=== PATIENT | female | born 2000 | race Caucasian/White ===

== ENCOUNTER 2020-06-21 16:44 | Emergency (ER) | payer OTHER, SELFPAY ==
--- NOTE | ~2020-06-21 | CT_ITS ---
CT lumbar spine wo con DATE: 06/21/2020 19:16 INDICATION: Fall yesterday. Lower back pain radiating to right leg Lumbar spine radiographs with question of possible L1 fracture TECHNIQUE: Exam dose: 1176.21 mGy-cm total exam DLP. COMPARISON: 06/21/2020 lumbar spine FINDINGS: There is mild anterior wedge compression fracture deformity of T12 of uncertain age. No fracture of the lumbar spine including L1. No spondylolysis or spondylolisthesis. Lumbar and lumbosacral interspaces are well preserved. Incidental finding of approximately 7.5 mm right renal calculus and at least 2 additional small right and one small left nonobstructing renal calculi. IMPRESSION: Mild anterior wedge compression fracture deformity of T12 uncertain Bilateral nephrolithiasis Reviewed, dictated and finalized at [facility]. Reviewed, dictated and finalized at location A. IRONER
--- NOTE | ~2020-06-21 | XR_ITS ---
XR lumbar spine 2-3V DATE: 06/21/2020 18:12 INDICATION: Fall yesterday. Lower back pain radiating to right leg TECHNIQUE: AP, lateral, coned lateral lumbosacral views COMPARISON: None FINDINGS: Normal alignment of the lumbar spine. A subtle step-off of the lower anterior cortex of the first lumbar vertebral body suggesting possible subtle fracture. Consider CT evaluation to confirm or exclude L1 vertebral body fracture. No other fracture or bone destruction is evident. The included lower thoracic and lumbar pedicles are intact. The lumbar and lumbosacral interspaces are well preserved. The sacroiliac joints are intact. IMPRESSION: Possible L1 vertebral body fracture; consider CT lumbar spine for further evaluation Reviewed, dictated and finalized at location A. ED PERSON IMPRESSION: Possible L1 vertebral body fracture; consider CT lumbar spine for f urther evaluation
[2020-06-21 17:15] VITALS: BP 145/95; PULSE 110; RESP 16; TEMP 36.6; O2SAT 98
--- NOTE | 2020-06-21 18:45 | PC.NURSE ---
CT of lumbar spine ordered. provider in room now.
--- NOTE | 2020-06-21 19:29 | PC.NURSE ---
patient back from CT. resting on stretcher. SO in room. patient wants pain meds. will discuss with provider.
--- NOTE | 2020-06-21 19:38 | ED.GENADULT ---
HPI - General Adult General Chief complaint: Back Pain/Injury Stated complaint: fall 2 days ago, back pain Time Seen by Provider: 06/21/20 17:22 Source: patient Mode of arrival: ambulatory Limitations: no limitations History of Present Illness HPI narrative: Patient presents with chief complaint of pain to her low back that presented 2 days ago after slipping on the stairs and landing directly on her buttocks. Patient states she fell like this shifted some pressure upward and now she has pain that sometimes radiates down her right leg with weightbearing or range of motion. She denies any saddle paresthesia, loss of bowel or bladder function or difficulty urinating or passing stool. Patient states she has been taking Tylenol and ibuprofen at home which does help slightly with her discomfort. 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 Patient denies any prior injuries to her back. Related Data Home Medications Medication Instructions Recorded Confirmed trazodone 06/21/20 venlafaxine mg PO 06/21/20 Allergies Allergy/AdvReac Type Severity Reaction Status Date / Time No Known Allergies Allergy Verified 06/21/20 19:40 Review of Systems Review of Systems: Narrative: CONSTITUTIONAL: Denies fever, chills, or sweats. EYES: Denies visual changes, redness, or discharge. ENT: Denies rhinorrhea, congestion, sore throat, or otalgia. CARDIOVASCULAR: Denies chest pain, palpitations, or edema. RESPIRATORY: Denies cough or dyspnea. GASTROINTESTINAL: Denies abdominal pain, nausea, vomiting, or diarrhea. GENITOURINARY: Denies dysuria or hematuria. SKIN: Denies rash or itching. MUSCULOSKELETAL: Reports back pain denies joint pain, or myalgia. NEUROLOGIC: Denies headache, numbness, dizziness, or weakness. PSYCHIATRIC: Denies anxiety or depression. Exam Narrative: Exam Narrative: GENERAL: Well-appearing, well-nourished, and in no acute distress. HEAD: Normocephalic, atraumatic. EYES: PERRLA and EOMI. NECK: Supple. No adenopathy or masses. Ligaments intact CHEST: Clear to auscultation. No respiratory distress. No wheezes rales or rhonchi HEART: Regular rate and rhythm. No murmur heard. Normal peripheral pulses. BACK: Pain to the lumbar area with palpation around L1-L4 area. Patient has full range of motion to her lower extremities. Patient's plantar and dorsiflexion strength intact. Patient reports full sensation to lower extremities. ABDOMEN: Soft, nontender, nondistended, normal active bowel sounds. EXTREMITIES: Normal range of motion. No edema. SKIN: Warm, dry, no rash. NEURO: No focal deficits. Alert and oriented x3. PSYCH: Normal mood and affect. Course Vital Signs Vital signs: Vital Signs Temperature 97.8 F 06/21/20 17:15 Pulse Rate 110 H 06/21/20 17:15 Respiratory Rate 16 06/21/20 17:15 Blood Pressure 145/95 H 06/21/20 17:15 Pulse Oximetry 98 06/21/20 17:15 Temperature 97.8 F 06/21/20 17:15 Pulse Rate 90 06/21/20 20:08 Respiratory Rate 16 06/21/20 20:08 Blood Pressure 132/80 06/21/20 20:08 Pulse Oximetry 100 06/21/20 20:08 Medical Decision Making MDM Narrative Medical decision making narrative: X-ray shows possible compression fracture to L1, CT is ordered for clarification. CT shows T12 anterior wedge fracture, mild. Calling Dr De Souza to see if he will manage patient due to her stable nature. Vital Signs Vital Signs: Vital Signs Temperature 97.8 F 06/21/20 17:15 Pulse Rate 110 H 06/21/20 17:15 Respiratory Rate 16 06/21/20 17:15 Blood Pressure 145/95 H 06/21/20 17:15 Pulse Oximetry 98 06/21/20 17:15 Temperature 97.8 F 06/21/20 17:15 Pulse Rate 90 06/21/20 20:08 Respiratory Rate 16 06/21/20 20:08 Blood Pressure 132/80 06/21/20 20:08 Pulse Oximetry 100 06/21/20 20:08 Lab Data Labs: UCG Bedside Result Negative
[2020-06-21] MEDS: HYDROcodone/acetaminophen (*CRX) 5-325 MG TABLET 1 TAB PO (19:41)
[2020-06-21 20:08] VITALS: BP 132/80; PULSE 90; RESP 16; O2SAT 100
== END 2020-06-21 20:09 | disposition home or self-care (01) ==
PROVIDERS: Emergency Provider Emergency Medicine; PCP Family Medicine
DX: S22.080A Wedge compression fracture of T11-T12 vertebra, initial encounter for closed fracture (principal); N20.0 Calculus of kidney; W10.9XXA Fall (on) (from) unspecified stairs and steps, initial encounter
CPT/HCPCS: 72100; 72131; 81025; 99284; A9270

== ENCOUNTER 2020-09-02 08:45 | Outpatient (RCR) | payer OTHER, BC, SELFPAY ==
--- NOTE | 2020-08-05 08:34 | PTOPEVAL ---
Thank you for referring Chrissie Rodríguez to [facility].? The patient is scheduled to be seen for therapy? 1-2 x/week for 5 weeks. Please review, sign, date and return this plan of care SUJIT. I agree with and certify that the following plan of care is medically necessary. Referring Physician Date Attending Provider: Boris De Souza MD Evaluation Information Problem Diagnosis T12 compression fracture Onset 06/21/20 Cause fall Subjective Information She feel down some steps when Query Text:As Reported By Patient/ she slipped landing on her Family tailbone. She is was on precautions of no bending, lifting. She has not been progressed to lift 10# and avoid excessive bending. 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 She c/o ache pain in her back region. C/o tightness of her back region with difficutly trying to stretch. She has increased pain with prolonged standing and sitting. She has increased pain after working her shift. She does not perform a regular exercise program. Diagnostic Tests X-Rays For This Problem Yes MRI For This Problem Yes Pain Assessment Self Report Pain Assessment Right Lower Back Reported Pain Level 2 Pain Description Aching Pain Frequency Acute,Intermittent Lowest Pain Intensity 0 Greatest Pain Intensity 5 Pain Aggravating Factors Lifting,Prolonged Position, Sitting,Walking,Weight Bearing /Standing Cervical and Lumbar ROM Lumbar ROM 25% of Normal Lumbar Comments painful with all trunk motions Lower Extremity Range of Motion General Lower Extremity Range of Motion Reason Not Measured WNL/Left,WNL/Right Lower Extremity Muscle Strength Testing Hip Strength Bilateral Hip Flexion Strength 5 Normal Hip Extension Strength 3+ Fair + Hip Abduction Strength 3 Fair Knee Strength Bilateral Knee Flexion Strength 5 Normal Knee Extension Strength 5 Normal Muscle Length Testing Muscle Length Testi
--- NOTE | 2020-09-02 09:23 | PTOPEVAL ---
Thank you for referring Chrissie Rodríguez to [facility] [place].? Chrissie has received 9 therapy visits from 08/05/20 to 09/02/20 to address limitations regarding her back fracture. She has improved with her pain, mobility, strength and ability to perform daily activities. She has achieved her therapy goals. Will D/C skilled therapy service at this time. Please review, sign, date and return this discharge summary SUJIT. I agree with and certify that the following plan of care is medically necessary. Referring Physician Date Attending Provider: Boris De Souza MD Physical therapy discharge note Diagnosis T12 compression fracture Onset 06/21/20 Cause fall Additional Evaluation Detail She feel down some steps when she slipped landing on her tailbone. 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 Denies any problems with work activities, daily activities or home program. She c/o increased tightness if she works 2 days in a row. Improved tightness with stretching. Pain Assessment Right Lower Back Reported Pain Level 1 Pain Description Tightness Pain Frequency Intermittent Lowest Pain Intensity 0 Greatest Pain Intensity 1 Pain Aggravating Factors Exercise/Activity Cervical and Lumbar ROM Lumbar Flexion Active Ankle Query Text:Hands to: Lumbar ROM WNL Lumbar Comments no pain with any trunk motions Lower Extremity Range of Motion General Lower Extremity Range of Motion Reason Not Measured WNL/Left,WNL/Right Lower Extremity Muscle Strength Testing Hip Strength Bilateral Hip Flexion Strength 5 Normal Hip Extension Strength 5 Normal Hip Abduction Strength 4- Good - Knee Strength Bilateral Knee Flexion Strength 5 Normal Knee Extension Strength 5 Normal Muscle Length Testing Two-Joint Hip Flexor Shortened Muscles Short (R) Iliopsoas,Short (L) Iliopsoas,Short (R) Rectus Femoris,Short (L) Rectus Femoris Piriformis w/Hip Neutral (R) Moderate Tightness,(L) Moderate Tightness Right Straight Leg Raise Muscle Length ( 88 degrees) Left Straight Leg Raise Muscle Length ( 78 degrees) Left Hamstring Length -40 Query Text:(90 - 90 Position) Right Hamstring Length -40 Query Text:(90 - 90 Position) Palpation Assessment Palpation
== END 2020-09-05 07:52 | disposition home or self-care (01) ==
LOC: ANHPT 08:45
PROVIDERS: PCP Family Medicine; Visit Provider Orthopaedic Surgery
DX: S22.080D Wedge compression fracture of T11-T12 vertebra, subsequent encounter for fracture with routine healing (principal)
CPT/HCPCS: 97110; 97140; 97161

== ENCOUNTER 2022-09-11 14:14 | Outpatient (CLI) | payer OTHER, SELFPAY ==
--- NOTE | ~2022-09-11 | XR_ITS ---
XR lumbar spine 2-3V DATE: 09/11/2022 14:58 INDICATION: Right hip pain for 3 years, worsening TECHNIQUE: AP, lateral, coned lateral lumbosacral views COMPARISON: 06/21/2020 CT lumbar spine FINDINGS: Chronic minimal anterior wedging of T12, stable since 06/21/2020. No fracture or bone destruction of the lumbar spine. The lumbar pedicles are intact. Lumbar and lumbo sacral interspaces are well preserved. The sacroiliac joints are normal. IUD overlies the lower mid pelvis. IMPRESSION: Chronic mild anterior wedging of T12, stable since 06/21/2020 No significant abnormality of the lumbar spine IUD Reviewed, dictated and finalized at location L.
--- NOTE | ~2022-09-11 | XR_ITS ---
XR hip LT 2V w AP pelvis DATE: 09/11/2022 14:59 INDICATION: Hip pain for 3 years, worsening TECHNIQUE: AP pelvis. AP and lateral views of left hip. COMPARISON: None FINDINGS: Normal alignment at the pubic symphysis and sacroiliac joints. No pelvic fracture or bone d estruction. Hip joint spaces appear symmetric and relatively preserved. No fracture, dislocation, avascular necro sis or bone destruction of the left hip. IUD overlies the mid pelvis. IMPRESSION: No pelvic or left hip fracture or dislocation Reviewed, dictated and finalized at location L.
== END 2022-09-11 14:15 | disposition home or self-care (01) ==
PROVIDERS: PCP Family Medicine; Visit Provider Family Medicine
DX: M25.551 Pain in right hip (principal); M48.54XA Collapsed vertebra, not elsewhere classified, thoracic region, initial encounter for fracture; Z97.5 Presence of (intrauterine) contraceptive device
CPT/HCPCS: 72100; 73502

== ENCOUNTER 2022-11-14 15:01 | Outpatient (RCR) | payer OTHER, SELFPAY ==
--- NOTE | 2022-09-24 11:55 | PTOPEVAL1 ---
Assessment and note entered by Leena Herrera DPT Evaluation Information Diagnosis L hip pain Subjective Information Patient reports 3 years ago when she was hip pain started with her daughter being positioned on the L side. She had another child a year ago which also progressed pain. She reports over the last 3 years pain has progressed. Patient has difficulty with laying on her L side, rolling in bed, navigating stairs and squatting. She reports that laying on the L side relieves pain. She reports she got a cortisone injection of and since then she has had an increase in back pain. She reports pain now is across the low back and into the L glute. 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 Reported Pain Level Pain Score 0,2: Self Report Assessment PT Clinical Summary Patient is a 21 year old female who presents to PT with low back and L hip pain. Patient demonstrates tightness of L piriformis, decreased L LE weakness, decreased L hip ROM and positive SLR test indicating possible lumbar radiculopathy. She is limited in ability to stand, squat and ambulate. She would benefit from skilled PT to address impairments and return to OF. Plan of Care Interventions Electrical Stimulation,Gait Training,Hot Pack/Cold Pack,Manual Therapy,Mechanical Traction,Neuro Re- education,Patient/Caregiver Educati,Therapeutic Activities,Therapeutic Exercise PT Services Indicated Yes Treatment Frequency and 2x weekly for 10 visits Duration These treatments will address the objective and functional deficits as defined above. The patient will be advanced safely and appropriately in order for the patient to progress towards his/her prior level of function. Additional exercises will be introduced and as well as a comprehensive home exercise program upon discharge, if needed, ?to ensure carryover of functional gains achieved in the clinic. This treatment plan has been reviewed and agreement upon by the patient.
--- NOTE | 2022-10-25 15:21 | PTOPREEVAL ---
Assessment and note entered by JT File, PT Evaluation Information Assessment Status Re-evaluation Diagnosis L hip pain Subjective Information patient reports she feels only a little bit of improvement, but no significant improvements. she reports the post hip pain is gone thanks to injection, but her back pain is still present. she reports she was home with 2 sick kids yesterday which could have flared up her back pain /soreness. she reports she has increased pain still in the lower back with lifting and carrying her kids, and occassionally from sleeping on it at night. Reported Pain Level Pain Score 5,0: Self Report Assessment PT Clinical Summary mrs. crawley presents to skilled PT for her 12th skilled PT visit. today, she is more sore from carrying and lifting 2 sick kids yesterday. she has met goals for hep performance and L hip rom as of today, but continues to present with mm tightness, L hip weakness, and decreased functional activity performance and quality of life. although she has not achieved intermediate project manager goals for these deficits she is making progress towards their achievement with skilled PT. she would benefit from continued skilled PT with transition into core stability and functional lifting program. Plan of Care Interventions Electrical Stimulation,Gait Training,Hot Pack/Cold Pack,Manual Therapy,Mechanical Traction,Neuro Re- education,Patient/Caregiver Educati,Therapeutic Activities,Therapeutic Exercise PT Services Indicated Yes Treatment Frequency and continue skilled PT 1x weekly for 3 more visits Duration These treatments will address the objective and functional deficits as defined above. The patient will be advanced safely and appropriately in order for the patient to progress towards his/her prior level of function. Additional exercises will be introduced and as well as a comprehensive home exercise program upon discharge, if needed, ?to ensure carryover of functional gains achieved in the clinic. This treatment plan has been reviewed and agreement upon by the patient.
[2022-11-14 15:05] LABS: Urine Cotinine POSITIVE (Negative)
--- NOTE | 2022-11-21 14:46 | PTOPDC ---
Assessment and note entered by Leena Herrera DPT Evaluation Information Assessment Status Re-evaluation Diagnosis L hip pain Subjective Information Patient reports she continues to have pain with activity but reports she can do more before needing to rest. She reports she has a pending appt to get into a spine pain managment specialist . She reports compliance with HEP Reported Pain Level Pain Score 4,0: Self Report Assessment PT Clinical Summary Patient been seen for a total of 13 visits of skilled PT. She demonstrates improved LE strength and flexibility as well as reports and increase in activity tolerance. She reports she is able to do more activity prior to onset of pain. She reports independence with HEP and is appropriate for DC at this time. Plan of Care PT Services Indicated No
== END 2022-11-21 15:26 | disposition home or self-care (01) ==
LOC: CHSPT 15:01
PROVIDERS: PCP Family Medicine; Visit Provider Family Medicine
DX: M25.551 Pain in right hip (principal)
CPT/HCPCS: 80307; 97014; 97110; 97140; 97150; 97161; G0283

== ENCOUNTER 2023-02-20 09:02 | Outpatient (CLI) | payer OTHER, SELFPAY ==
[2023-02-20 09:34] LABS: SARS-CoV-2 Ag Negative (Negative)
== END 2023-02-20 09:03 | disposition home or self-care (01) ==
PROVIDERS: PCP Family Medicine; Visit Provider Registered Nurse
DX: R51.9 Headache, unspecified (principal); Z20.822 Contact with and (suspected) exposure to COVID-19
CPT/HCPCS: 87426; C9803

== ENCOUNTER 2023-06-04 16:42 | Outpatient (CLI) | payer OTHER, SELFPAY ==
[2023-06-04 16:54] LABS: Basophils Absolute Auto 0.03 K/mm3 (0.00-0.10); Basophils Percent Auto 0.5 % (0.0-1.0); Eosinophils Absolute Auto 0.15 K/mm3 (0.02-0.50); Eosinophils Percent Auto 2.3 % (1.0-6.0); Hematocrit 38.5 % (35.0-49.0); Hemoglobin 12.5 g/dL (12.0-15.0); Immature Granulocyte Absolute 0.02 K/mm3 (0.00-0.00); Immature Granulocyte Percent A 0.3 % (0.0-0.0); Lymphocytes Absolute Auto 1.89 K/mm3 (1.10-4.50); Lymphocytes Percent Auto 28.6 % (18.0-42.0); Mean Corpuscular HGB Conc 32.5 g/dL (32.0-36.0); Mean Corpuscular Hemoglobin 26.3 pg (27.0-31.0); Mean Corpuscular Volume 81.1 fL (78.0-102.0); Mean Platelet Volume 10.7 fl (9.2-11.8); Monocytes Percent Auto 9.1 % (2.0-11.0); Neutrophils Absolute Auto 3.9 K/mm3 (1.7-7.2); Neutrophils Percent Auto 59.2 % (50.0-70.0); Platelet Count Result 321 K/mm3 (150-420); Red Blood Count 4.75 M/mm3 (4.20-5.40); Red Cell Distribution Width 14.5 % (11.6-14.4); White Blood Count 6.6 K/mm3 (4.8-10.8)
[2023-06-04 17:42] LABS: Alanine Aminotransferase 25 U/L (14-59); Albumin Level 3.7 g/dL (3.4-5.0); Alkaline Phosphatase 90 U/L (46-116); Anion Gap 12 mmol/L (8-16); Aspartate Amino Transferase 16 U/L (15-37); Bilirubin,Total 0.2 mg/dL (0.00-1.00); Blood Urea Nitrogen 10 mg/dL (7-18); Carbon Dioxide 24 mmol/L (21-32); Chloride 99 mmol/L (98-108); Estimated Glomerular Filt Rate > 60; Folic Acid 15.7 ng/mL (8.6->20); Glucose 101 mg/dL (70-99); Iron 34 ug/dL (50-170); Osmolality Calculated 279 mOsm/kg (285-295); Percent Iron Saturation 8 % (12-57); Potassium 4.2 mmol/L (3.5-5.1); Sodium 135 mmol/L (136-145); Thyroid Stimulating Hormone 2.18 uIU/mL (0.36-3.74); Total Protein 7.3 g/dL (6.4-8.2); Vitamin B12 624 pg/mL (193-986)
[2023-06-09 14:05] LABS: Vitamin D 25 Hydroxy 12 ng/mL (30-100)
== END 2023-06-04 16:43 | disposition home or self-care (01) ==
PROVIDERS: PCP Family Medicine; Visit Provider Family Medicine
DX: R53.83 Other fatigue (principal); F32.A Depression, unspecified
CPT/HCPCS: 36415; 80053; 82306; 82607; 82746; 83540; 83550; 84443; 85025

== ENCOUNTER 2023-09-10 14:32 | Outpatient (CLI) | payer OTHER, MEDICAID, SELFPAY ==
[2023-09-10 14:55] LABS: Basophils Absolute Auto 0.02 K/mm3 (0.00-0.10); Basophils Percent Auto 0.2 % (0.0-1.0); Hematocrit 39.8 % (35.0-49.0); Hemoglobin 12.8 g/dL (12.0-15.0); Immature Granulocyte Absolute 0.04 K/mm3 (0.00-0.00); Immature Granulocyte Percent A 0.4 % (0.0-0.0); Lymphocytes Percent Auto 21.1 % (18.0-42.0); Mean Corpuscular HGB Conc 32.2 g/dL (32-36); Mean Corpuscular Hemoglobin 27.2 pg (27.0-31.0); Mean Corpuscular Volume 84.5 fL (78.0-102.0); Mean Platelet Volume 9.6 fl (9.2-11.8); Neutrophils Absolute Auto 6.81 K/mm3 (1.70-7.20); Neutrophils Percent Auto 68.3 % (50.0-70.0); Platelet Count Result 364 K/mm3 (150-420); Red Blood Count 4.71 M/mm3 (4.20-5.40); Red Cell Distribution Width 13.7 % (11.6-14.4)
[2023-09-10 15:19] LABS: Iron 37 ug/dL (50-170); Percent Iron Saturation 10 % (12-57)
[2023-09-11 22:04] LABS: Vitamin D 25 Hydroxy 38 ng/mL (30-100)
== END 2023-09-10 14:33 | disposition home or self-care (01) ==
LOC: CHSLAB 14:36
PROVIDERS: PCP Family Medicine; Visit Provider Family Medicine
DX: Z01.818 Encounter for other preprocedural examination (principal); E55.9 Vitamin D deficiency, unspecified
CPT/HCPCS: 36415; 82306; 83540; 83550; 85025

== ENCOUNTER 2023-12-03 09:57 | Outpatient (RCR) | payer OTHER, MEDICAID, SELFPAY ==
--- NOTE | 2023-12-03 16:10 | OPREHPOC ---
Outpatient Therapy Plan of Care This is a Multidisciplinary Plan of Care that may contain components documented by all disciplines (PT, OT, and ST.) PT Problem 1 PT Problem #1 Knowledge Deficit PT Goal 1 Goal 1.independent and compliant with HEP PT Problem 2 PT Problem #2 Pain PT Goal 1 Goal 1. decrease pain at worst to 2/10 or less Target Visit 12 PT Problem 3 PT Problem #3 Impaired Range of Motion PT Goal 1 Goal 1. improve L ankle active DF to 15 degrees or better 2. improve L ankle active PF to 40 degrees or better 3. improve L ankle active EV to 5 degrees or better 4. improve L ankle active IV to 25 degrees or better Target Visit 12 PT Problem 4 PT Problem #4 Impaired Strength PT Goal 1 Goal 1. improve L ankle strength to 5/5 overall 2. improve L to curl strength to 5/5 Target Visit 12 PT Problem 5 PT Problem #5 Impaired Functional Mobil PT Goal 1 Goal 1. LEFS to display 30% or less functional deficits 2. patient to wean out of boot completely 3. patient to ambulate on level surfaces with normal gait mechanics 4. patient to ambulate up steps with reciprocal mechanics and down steps with marked time or better pattern. Target Visit 12
--- NOTE | 2023-12-03 16:10 | PTOPEVAL1 ---
Assessment and note entered by JT File, PT Evaluation Information Assessment Status Evaluation Diagnosis pain in L foot Other ICD-10 Condition Codes ( M79.672 - pain in left foot PT) Onset 08/29/23 Subjective Information patient reports on 08/29/23, she was on her way to work. she reports she stopped for gas and tripped on the gas line. she reports she broke both bones in her ankle, and 2 bones in her foot. she had external fixators placed on 09/03/23, and on 09/17 she had a lisfranc repair, and internal fixation of the ankle. she reports she has been in a boot since surgery. she reports she began putting weight on the L ankle last week. she reports she started with 2 crutches, but now is down to 1 crutch. she reports she has difficulty with walking. she reports it is a struggle to remember how to walk sometimes. she reports she does not have a ton of pain. 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 Reported Pain Level Pain Score 3: Self Report Assessment PT Clinical Summary mrs. crawley is a 22 yo woman who presents to skilled PT services for rehab following fracture and surgical stabilization of the R ankle/foot. she had a pilon fracture and lis franc fracture repared/stabilized. she now presents with deficits in full weight bearing on the L, decreased L ankle rom, and L ankle/foot weakness. continued skilled PT is indicated to improve her objective/ functional deficits to return to prior level functional activity performance/quality of life. Plan of Care Interventions Gait Training,Hot Pack/Cold Pack,Manual Therapy, Neuro Re-education,Patient/Caregiver Educati, Therapeutic Activities,Therapeutic Exercise PT Services Indicated Yes Treatment Frequency and 2x weekly for 12 visits Duration These treatments will address the objective and functional deficits as defined above. The patient will be advanced safely and appropriately in order for the patient to progress towards his/her prior level of function. Additional exercises will be introduced and as well as a comprehensive home exercise program upon discharge, if needed, ?to ensure carryover of functional gains achieved in the clinic. This treatment plan has been reviewed and agreement upon by the patient.
--- NOTE | 2023-12-24 10:47 | PCPTNOTE ---
I reviewed the License Pending Therapist's documentation and agree with the findings.
--- NOTE | 2023-12-27 17:37 | PCPTNOTE ---
On 12/27/23, the license pending GARBAGE PICK UP WORKER, [Michelle Del Toro], provided care and completed [facility] documentation on this patient. I have reviewed the license pending GARBAGE PICK UP WORKER's documentation and agree with the findings.
--- NOTE | 2024-01-06 09:32 | PCPTNOTE ---
Patient called & cancelled scheduled appointment this date due to [illness ]
--- NOTE | 2024-01-08 15:36 | OPREHPOC ---
Outpatient Therapy Plan of Care This is a Multidisciplinary Plan of Care that may contain components documented by all disciplines (PT, OT, and ST.) PT Problem 1 PT Problem #1 Knowledge Deficit PT Goal 1 Goal 1.independent and compliant with HEP Progress Met PT Problem 2 PT Problem #2 Pain PT Goal 1 Goal 1. decrease pain at worst to 2/10 or less Target Visit 12 Progress Not Met PT Problem 3 PT Problem #3 Impaired Range of Motion PT Goal 1 Goal 1. improve L ankle active DF to 15 degrees or better. met 2. improve L ankle active PF to 40 degrees or better 3. improve L ankle active EV to 5 degrees or better. met 4. improve L ankle active IV to 25 degrees or better. met Target Visit 24 Progress Partially Met PT Problem 4 PT Problem #4 Impaired Strength PT Goal 1 Goal 1. improve L ankle strength to 5/5 overall 2. improve L to curl strength to 5/5 Target Visit 24 Progress Partially Met PT Problem 5 PT Problem #5 Impaired Functional Mobil PT Goal 1 Goal 1. LEFS to display 30% or less functional deficits . not met 2. patient to wean out of boot completely. partially met 3. patient to ambulate on level surfaces with normal gait mechanics. not met 4. patient to ambulate up steps with reciprocal mechanics and down steps with marked time or better pattern. not met Target Visit 24 Progress Partially Met
--- NOTE | 2024-01-08 15:36 | PTOPREEVAL ---
Assessment and note entered by JT File, PT Evaluation Information Assessment Status Re-evaluation Diagnosis pain in L foot Other ICD-10 Condition Codes ( M79.672 - pain in left foot PT) Onset 08/29/23 Subjective Information patient reports she is doing better overall. she reports her walking is better, but she is still Sore in the L foot/ankle. she reports the tenderness on the side of the foot/ankle is gone. she reports the ankle was sore prior to her injury . she reports during her injury she ruptured several tendons in the ankle as well as having the fracture. she reports she still struggles to push off the L toe when walking. she reports she also has difficulty with walking down steps leading with the L LE. Reported Pain Level Pain Score 2: Self Report Assessment PT Clinical Summary mrs. crawley presents to skilled PT services today for her 11th skilled PT visit. she has just had a follow up with the MD who is happy with her progress, but would like her to continue skilled PT. today, she displays improved L ankle active rom and improved L ankle mmt, but continued weakness of the L ankle and continued gait/stair ambulation deficits. she would benefit from continued skilled PT to address her remaining objective/functional deficits to achieve goals and return to prior level functional activity performance. Plan of Care Interventions Gait Training,Hot Pack/Cold Pack,Manual Therapy, Neuro Re-education,Patient/Caregiver Educati, Therapeutic Activities,Therapeutic Exercise PT Services Indicated Yes Treatment Frequency and continue skilled PT 2x weekly for 12 more visits Duration These treatments will address the objective and functional deficits as defined above. The patient will be advanced safely and appropriately in order for the patient to progress towards his/her prior level of function. Additional exercises will be introduced and as well as a comprehensive home exercise program upon discharge, if needed, ?to ensure carryover of functional gains achieved in the clinic. This treatment plan has been reviewed and agreement upon by the patient.
--- NOTE | 2024-02-26 09:52 | OPREHPOC ---
Outpatient Therapy Plan of Care This is a Multidisciplinary Plan of Care that may contain components documented by all disciplines (PT, OT, and ST.) PT Problem 1 PT Problem #1 Knowledge Deficit PT Goal 1 Goal / Goal Update 1.independent and compliant with HEP Progress Met PT Problem 2 PT Problem #2 Pain PT Goal 1 Goal / Goal Update 1. decrease pain at worst to 2/10 or less Target Visit 12 Progress Not Met PT Problem 3 PT Problem #3 Impaired Range of Motion PT Goal 1 Goal / Goal Update 1. improve L ankle active DF to 15 degrees or better. met 2. improve L ankle active PF to 40 degrees or better. met 3. improve L ankle active EV to 5 degrees or better. met 4. improve L ankle active IV to 25 degrees or better. met Target Visit 24 Progress Met PT Problem 4 PT Problem #4 Impaired Strength PT Goal 1 Goal / Goal Update 1. improve L ankle strength to 5/5 overall. met 2. improve L to curl strength to 5/5. met Target Visit 24 Progress Met PT Problem 5 PT Problem #5 Impaired Functional Mobil PT Goal 1 Goal / Goal Update 1. LEFS to display 30% or less functional deficits . met 2. patient to wean out of boot completely. met 3. patient to ambulate on level surfaces with normal gait mechanics. met 4. patient to ambulate up steps with reciprocal mechanics and down steps with marked time or better pattern. not met Target Visit 24 Progress Partially Met
--- NOTE | 2024-02-26 09:53 | PTOPDC ---
Assessment and note entered by JT File, PT Evaluation Information Assessment Status Discharge Diagnosis pain in L foot Other ICD-10 Condition Codes ( M79.672 - pain in left foot PT) Onset 08/29/23 Subjective Information patient reports she feels Good lately. she reports she has been able to complete 12 hour work days without increased foot or ankle issues. she reports she is compliant with her HEP at home. she has not had to use the boot recently, and only notices deficits in ambulation down steps trying to go with reciprocal pattern. Reported Pain Level Pain Score 2: Self Report Assessment PT Clinical Summary mrs. crawley presents to skilled PT services today for her 24th skilled PT visit. she presents today having completely weaned from the boot, wearing normal shoes, and displaying improved strength and rom of the L ankle. she has met 83% of her goals for skilled PT as of this date. she is only limited functionally in reciprocal mechanics on steps. she will DC skilled PT today, and continued to work on her HEP at home to achieve her remaining stair ambulation goal. Plan of Care PT Services Indicated Yes
== END 2024-02-26 09:56 | disposition home or self-care (01) ==
LOC: CHSPT 09:57
DX: M79.672 Pain in left foot (principal)
CPT/HCPCS: 97016; 97110; 97112; 97140; 97161

== ENCOUNTER 2024-01-31 17:14 | Emergency (ER) | payer OTHER, SELFPAY ==
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
[2024-01-31 17:15] VITALS: BP 136/102; PULSE 114; RESP 20; TEMP 36.6; O2SAT 97
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
[2024-01-31 17:27] VITALS: BP 137/91
[2024-01-31] MEDS: KETOROLAC (*BKC) 60 MG/2 ML VIAL IM (17:49)
[2024-01-31] MEDS: ORPHENADRINE CITRATE 30 MG/ML 2 ML VIAL 60 MG IM (17:50)
[2024-01-31 19:18] VITALS: BP 122/88; PULSE 88; RESP 18; O2SAT 100
== END 2024-01-31 19:18 | disposition home or self-care (01) ==
PROVIDERS: Emergency Provider Emergency Medicine; PCP Family Medicine
DX: S16.1XXA Strain of muscle, fascia and tendon at neck level, initial encounter (principal); S40.012A Contusion of left shoulder, initial encounter; Z79.82 Long term (current) use of aspirin; Z79.899 Other long term (current) drug therapy; V89.2XXA Person injured in unspecified motor-vehicle accident, traffic, initial encounter
CPT/HCPCS: 70450; 72125; 73030; 96372; 99284; J1885; J2360